=== PATIENT | female | born 1985 | race Two or more races ===

== ENCOUNTER 2024-03-22 17:42 | Emergency (ER) | payer BC ==
[~2024-03-22] VITALS: Ht 162.6 cm; Wt 70.3 kg
[2024-03-22] MEDS ORDERED: LIDOCAINE 5% (PATCH) 1 EA PATCH TP ONE (20:31)
[2024-03-22] MEDS ORDERED: ACETAMINOPHEN ES 500 MG TABLET ONE (20:31)
[2024-03-22] MEDS: ACETAMINOPHEN ES 500 MG TABLET PO ONE (20:48)
[2024-03-22] MEDS: LIDOCAINE 5% (PATCH) 1 EA PATCH TP ONE (20:48)
[2024-03-22 22:42] VITALS: BP 140/86; TEMP 99; O2SAT 98
== END 2024-03-22 22:42 | disposition home or self-care (01) ==
LOC: ER 17:45
DX: M54.6 Pain in thoracic spine (principal); M54.59 Other low back pain; R07.2 Precordial pain; M25.552 Pain in left hip; M25.551 Pain in right hip; V43.62XA Car passenger injured in collision with other type car in traffic accident, initial encounter; Y93.89 Activity, other specified; Y92.488 Other paved roadways as the place of occurrence of the external cause; Y99.8 Other external cause status
CPT/HCPCS: 71111-TC; 72070-TC; 72110-TC